=== PATIENT | male | born 1950 | race Caucasian/White ===

== ENCOUNTER → 2023-08-16 09:50 | Outpatient (REF) | payer MEDICARE, OTHER, SELFPAY ==
[2023-08-16 11:25] LABS: % Eosinophils 4.6 % (0-6); % Immature Granulocytes 0.2 % (0-0.5); % Lymphocytes 14.4 % (20.5-51.1); % Monocytes 9.2 % (1.7-9.3); % Neutrophils 70.6 % (42.2-75.2); Absolute Basophils 0.1 10^3/uL (0-0.2); Absolute Eosinophils 0.3 10^3/uL (0-0.7); Absolute Lymphocytes 0.9 10^3/uL (1.2-3.4); Absolute Monocytes 0.6 10^3/uL (0.1-0.6); Absolute Neutrophils 4.3 10^3/uL (1.4-6.5); Hematocrit 44.7 % (39.0-52.0); Mean Corp Hgb Conc. 33.6 g/dL (33.0-37.0); Mean Corpuscular Hgb 27.9 pg (27.0-31.0); Mean Corpuscular Volume 83.1 fL (80.0-94.0); Mean Platelet Volume 9.8 fL (7.4-10.4); Nucleated Red Blood Cells % 0 % (-); Platelet Count 249 10^3/uL (130-400); Red Blood Cell Count 5.38 10^6/uL (4.70-6.10); Red Cell Dist. Width 14.8 % (11.5-14.5); White Blood Cell Count 6.1 10^3/uL (4.8-10.8)
[2023-08-16 11:34] LABS: INR 1.18
[2023-08-16 11:35] LABS: ALT (SGPT) 19 U/L (0-50); AST (SGOT) 26 U/L (17-59); Albumin 4.4 g/dl (3.5-5.0); Alkaline Phosphatase 42 U/L (38-126); Blood Urea Nitrogen 23 mg/dl (9-20); Calcium 9.8 mg/dl (8.4-10.2); Carbon Dioxide 29 mmol/L (22-30); Chloride 104 mmol/L (98-107); Glucose 120 mg/dl (70-99); Magnesium 1.9 mg/dl (1.6-2.3); Potassium 4.3 mmol/L (3.5-5.1); Sodium 140 mmol/L (135-145); Total Bilirubin 0.5 mg/dl (0.2-1.3); Total Protein 6.8 g/dl (6.3-8.2); eGFR > 60.00
== END ==
LOC: SDSPAT 09:50
PROVIDERS: ATTENDING PHYSICIAN Internal Medicine Cardiovascular Disease; FAMILY PHYSICIAN Family Medicine; OTHER PHYSICIAN Internal Medicine Cardiovascular Disease
DX: Z01.818 Encounter for other preprocedural examination (principal); I48.91 Unspecified atrial fibrillation
CPT/HCPCS: 36415; 75572; 80053; 83735; 85025; 85610; 86850; 86900; 86901; 93005; Q9967

== ENCOUNTER 2023-09-02 08:30 | Day surgery (SDC) | payer MEDICARE, OTHER, SELFPAY ==
[2023-08-16 11:01] VITALS: BMI 24.8
--- NOTE | 2023-08-17 13:32 | W.PN.UPDATE ---
Update Note
Progress Note Update
incidental 5mm pulmonary nodule on CT--faxed to PCP
[2023-09-02] VITALS (22 sets, daily range): BP systolic 135–193; BP diastolic 76–112; BMI 24.8
[2023-09-02] MEDS: TYLENOL 1000 MG PO (10:11)
[2023-09-02 11:31] LABS: ACT-LR - POC 274 Seconds (116-155)
[2023-09-02 11:53] LABS: ACT-LR - POC 240 Seconds (116-155)
--- NOTE | 2023-09-02 12:16 | ITS.CL.ABL ---
Financial Reporting Advisor - Ablation
Ablation
Procedure Report:
ELECTROPHYSIOLOGY ABLATION STUDY
DATE:: September 02, 2023 REFERRING: Dr. Anil Styles
INDICATION: Paroxysmal supraventricular tachycardia in the form of atrial fibrillation. History of 3 cardioversions
HISTORY: See H and P. As above
ANTIARRHYTHMIC DRUG: Sotalol
PRE-PROCEDURE ROXANNE: No atrial thrombus and intracardiac ultrasound
PRESENTING RHYTHM: Sinus rhythm
'TIME-OUT': called and confirmed.
SEDATION/ANESTHESIA: provided via the anesthesia department using general anesthesia (LMA).
INTRAVENOUS/ARTERIAL ACCESS:
Right femoral venous - 8Fr
Left femoral venous - 8 Fr, 6 Fr
Ultrasound guidance for bilateral femoral vein access was utilized by me to obtain access with demonstration of normal anatomy
CHADS-VASC Score: Age greater than 75, hypertension
HAS-Bled Score
PROCEDURE:
1. A decapolar CS catheter was placed within the CS for mapping and pacing. This was also used as the reference catheter for the 3-D map.
2. The intracardiac ultrasound catheter was positioned in the RA to identify the FO for targeting of transseptal puncture, assist in identification of the pulmonary vein ostia, monitoring pre and post ablation pulmonary vein flow velocities,
monitoring for 'bubble' formation during RF application as a sign of thermal injury, and to monitor for pericardial effusion during mapping and ablation procedure. Left atrial size, LV ejection fraction, and pulmonary vein flows were monitored
pre and post ablation procedure. The other valves were inspected and found to be free of significant regurgitation or stenosis.
3. Half of the calculated heparin bolus was administered prior to the first transeptal puncture. Transseptal puncture was performed to diagnose RA and LA pressure so that safety of LA mapping and ablation could be further assessed, and to access
the left atrium and pulmonary veins for mapping and ablation. This entailed advancing an 8 Fr SL-1 sheath with dilator into the superior vena cava and withdrawing both (monitoring intracardiac ultrasound, fluoroscopy and tip pressure) with the tip
oriented toward the atrial septum. The fossa ovalis was engaged (indicated by sudden displacement of the sheath tip as well as tenting of the fossa seen on intracardiac ultrasound). Left atrial access required a pass with the Brockenbrough needle
extended. Left atrial catheter position was confirmed by pressure monitoring (RA mean pressure 8 mm Hg and LA mean presure 14 mm Hg), LA saturation (99%), as well as fluoroscopy. The sheath was advanced over the dilator and positioned in the left
atrium. This procedure was repeated for the Agilis sheath. The remainder of the calculated heparin bolus was administered and heparin was
infused to maintain ACT at 300 -350 seconds throughout the case.
4. RA pacing was performed via the proximal decapolar poles and LA pacing was performed via the distal decapolr poles.
5. A quadrapolar catheter was first positioned at the His position for His Bundle recording which was tagged via the 3-D Navex sytem, and then passed to the RVA for RV pacing and recording.
6. The multipolar catheter and PFA catheter were placed in each of the LIPV, LSPV, RSPV and the RIPV.
7. Next, a 3-D map was created using Navex. A 3-D reconstructed CT image was compared to the 3-D Navex map to assist in anatomic interpretation, mapping and ablation. The CT image and the NavX image were fused.
8. Entrance next block was confirmed in all 4 pulmonary veins as well as electrical silence and exit block in the left atrial posterior wall from roof to floor. Total of 81 lesions were given. Post vein and posterior wall isolation EP study with
extrastimuli and rapid burst pacing did not induce any other atrial arrhythmias. There were no none PV triggers seen.
9. Normal sinus node and AV node function were noted.
TOTAL FLOURO TIME: 12.7 minutes
TOTAL RF DURATION: 0 minutes
REVERSAL OF HEPARIN: 35 mg of protamine, slow IV administration
COMPLICATIONS:
None
Intracardiac US shows no pericardial effusion post ablation.
SUMMARY:
Complex left atrial mapping and ablation.
Entrance next block was confirmed in all 4 pulm veins plus left atrial posterior wall
RECOMMENDATIONS:
1. Admit to monitored bed.
2. Resume anticoagulation
3. Out of bed 4 hours
4. Discontinue sotalol and add metoprolol
Copy to: Dr. Anil Styles
--- NOTE | 2023-09-02 14:53 | CM ---
Chart reviewed. Patient is independent of ADLS, lives with his in a 2 [address], 1 [employer], 0 DME. Plan is for the patient to return home. CM to follow
[2023-09-02] MEDS: LOTREL 10 MG/20 MG 1 CAPSULE PO (15:07)
[2023-09-02] MEDS: ANESTHETIC LOZENGE 1 LOZENGE PO ×2 (15:30→21:08)
--- NOTE | 2023-09-02 19:25 | PTCARENOTE ---
Pt received post PVI, pt c/o sore throat and coughing stating recent resp. issue in the last week. Pt encouraged to splint his groins when coughing. Left femoral vein site slightly puffy, ? small hematoma which remained unchanged until figure of
eight suture was removed @16:30. Manual pressure held for @10minutes, Cara Montero NP and notified and came to see pt. Pt remained in bed for another hour but after getting up hematoma was enlarged, manual pressure agin hel for 15 minutes
with reduction in hematoma. notified again, pt will stay in bed an additional 2 hours with close monitoring. Right femoral site with dry and intact dressing, no sign of hematoma. Telemetry shows sinus rhythm/tach @105.
Pt unable to void while on bedrest, bladder scanned for 518mls, Cara Montero NP notified, pt straight cath's without difficulty for 675mls. (Pt states he is awaiting prostate biopsy) . Will monitor.
--- NOTE | 2023-09-02 20:47 | PTCARENOTE ---
Received pt at change of shift. A&O x4. Bilateral femoral sites clean, dry and intact. Rt site soft. Lt site hard and tender. Small hematoma noted. Applied manual pressure for 10 minutes. ANJUM Sebastian at the bedside and recommended sandbag
pressure for one hour. Applied at 2014.
He was previously taking sotalol, but is being changed to Metoprolol XL 25mg PO daily to start tomorrow. During the day, his HR was 60s-80s. It has been steadily increasing and is sitting at 105 currently and his BP is 164/91. Reached out to .
Ronan Carr and wanted dose started tonight. Per , order placed for Metoprolol XL 25 mg now. See APR.
[2023-09-02] MEDS: TOPROL XL 25 MG PO (21:00)
[2023-09-02] MEDS: ELIQUIS 5 MG PO (21:54)
--- NOTE | 2023-09-02 21:59 | PTCARENOTE ---
Sandbag removed at 2114. Left groin now soft to touch. No hematoma. Reviewed activity restrictions with the patient. Verbalized understanding.
Patient due to void. Assisted to the bathroom. Urinated 50 cc yellow urine. PVR 375 cc. Patient denies any discomfort/distention.
[2023-09-03 02:07] VITALS: BP 173/93
[2023-09-03 02:09] VITALS: BP 160/90
[2023-09-03 03:13] VITALS: BP 141/83
[2023-09-03 03:32] LABS: Hematocrit 40.9 % (39.0-52.0); Mean Corp Hgb Conc. 34.2 g/dL (33.0-37.0); Mean Corpuscular Hgb 27.3 pg (27.0-31.0); Mean Corpuscular Volume 79.9 fL (80.0-94.0); Mean Platelet Volume 9.4 fL (7.4-10.4); Platelet Count 297 10^3/uL (130-400); Red Blood Cell Count 5.12 10^6/uL (4.70-6.10); Red Cell Dist. Width 14.4 % (11.5-14.5); White Blood Cell Count 8.2 10^3/uL (4.8-10.8)
[2023-09-03 03:44] LABS: Blood Urea Nitrogen 27 mg/dl (9-20); Calcium 9.3 mg/dl (8.4-10.2); Carbon Dioxide 25 mmol/L (22-30); Chloride 107 mmol/L (98-107); Estimated Creatinine Clearance 70 ml/min; Glucose 131 mg/dl (70-99); Magnesium 1.9 mg/dl (1.6-2.3); Potassium 4.3 mmol/L (3.5-5.1); Sodium 137 mmol/L (135-145); eGFR > 60.00
[2023-09-03] MEDS: ANESTHETIC LOZENGE 1 LOZENGE PO (04:24)
[2023-09-03 06:00] VITALS: BMI 23.6
--- NOTE | 2023-09-03 06:24 | PTCARENOTE ---
Patient slept well overnight. Left groin site soft to touch. Ambulating to bathroom, steady on his feet.
Patient voiding small amounts overnight. Bladder scans less than 400ml. Patient denies any discomfort.
[2023-09-03 07:26] VITALS: BP 159/94
[2023-09-03] MEDS: INDOCIN 50 MG PO (08:03)
[2023-09-03] MEDS: LOTREL 10 MG/20 MG 1 CAPSULE PO (08:04)
[2023-09-03] MEDS: TRICOR 145 MG PO (08:04)
[2023-09-03] MEDS: PROTONIX 40 MG PO (08:04)
[2023-09-03] MEDS: ELIQUIS 5 MG PO (08:04)
[2023-09-03] MEDS: TOPROL XL 25 MG PO ×2 (08:04→09:48)
--- NOTE | 2023-09-03 09:35 | W.PN.CARDCBS ---
Addendum entered and electronically signed by Diego Nathan MD 09/03/23 10:54:
Patient seen and examined
Bilateral groins clean dry and intact
Soft left groin hematoma without pain or bruit
Stable if not improved this morning compared to last evening.
Examination:
As per DAIRY PROCESSING EQUIPMENT OPERATOR note
Bilateral groins clean dry and intact
Cor regular
Alert and x 3
Nonfocal neurologically
Impression:
Symptomatic paroxysmal Afib
post PVI 09/02/23
HTN
HLD
BPH with urinary retention
GERD
h/o GIB/Hemorrhoids
Pulmonary nodule on CT scan
SUMMARY:
Complex left atrial mapping and ablation.
Entrance next block was confirmed in all 4 pulm veins plus left atrial posterior wall
Plan:
post ablation feels good
tele SR with brief PAT
L groin events o/n noted, slight swelling but soft, no HT
voiding with less than 500cc residual, f/u with urology outpt
planned prostate bx will be pushed back 3 mo (December) as to not interrupt OAC post ablation
continue OAC Eliquis
Will stop Sotalol
New start to metoprolol xl 50mg daily
Activity restrictions reviewed
f/u Dr. Styles in 6-8 weeks
home today
Original Note:
Today's Communication / Plan
-
post ablation
stable for d/c home
Impression / Plan
-
PCP: Pastor Ford MD
CDY: Terrell Styles MD
Impression:
Symptomatic paroxysmal Afib
post PVI 09/02/23
HTN
HLD
BPH with urinary retention
GERD
h/o GIB/Hemorrhoids
Pulmonary nodule on CT scan
SUMMARY:
Complex left atrial mapping and ablation.
Entrance next block was confirmed in all 4 pulm veins plus left atrial posterior wall
Plan:
post ablation feels good
tele SR with brief PAT
L groin events o/n noted, slight swelling but soft, no HT
voiding with less than 500cc residual, f/u with urology outpt
planned prostate bx will be pushed back 3 mo (December) as to not interrupt OAC post ablation
continue OAC Eliquis
Will stop Sotalol
New start to metoprolol xl 50mg daily
Activity restrictions reviewed
f/u Dr. Styles in 6-8 weeks
home today
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
Subjective
Date of Service: September 03, 2023
no cp, sob
Objective
Labs:
09/03/23 03:17
09/03/23 03:17
Labs
Hgb 14.0 g/dL (13.0-18.0) 09/03/23 03:17
Hct 40.9 % (39.0-52.0) 09/03/23 03:17
Plt Count 297 10^3/uL (130-400) 09/03/23 03:17
Sodium 137 mmol/L (135-145) 09/03/23 03:17
Potassium 4.3 mmol/L (3.5-5.1) 09/03/23 03:17
BUN 27 mg/dl (9-20) H 09/03/23 03:17
Creatinine 1.0 mg/dL (0.7-1.3) 09/03/23 03:17
Glucose 131 mg/dl (70-99) H 09/03/23 03:17
Vital Signs and I&O:
Vital Signs
Temp Pulse Resp BP Pulse Ox
98.2 F 70 18 159/94 99
09/03/23 07:38 09/03/23 08:00 09/03/23 07:38 09/03/23 07:26 09/03/23 08:16
Vital Signs
Temp Pulse Resp BP Pulse Ox
98.2 F 70 18 159/94 99
09/03/23 07:38 09/03/23 08:00 09/03/23 07:38 09/03/23 07:26 09/03/23 08:16
Intake & Output
09/01/23 09/02/23 09/03/23 09/04/23
06:59 06:59 06:59 06:59
Intake Total 1100 / 1100
Output Total 1075 / 1075
Balance
Physical Exam
Physical Exam
NAD, AOX3
S1, S2, RRR
CTAB, non labored
SNTND Bsx4
R fem site c/d/i
L fem site slightly swollen, soft, no HT
[2023-09-03 09:50] VITALS: BP 159/95
--- NOTE | 2023-09-03 11:49 | W.DS.TRANS ---
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
-
Discharge Instructions:
Sleep Apnea Risk Intermediate
Discharge Diagnosis/Procedures Afib post ablation
Diet Low Cholesterol
Driving Restrictions No driving for 24 hours
Instructions:
Stand-Alone Forms: DC Instructions- Cath/EP Lab
Changes to Home Medications: Yes
Discharge Medications:
DC Medications w/original date entered in [facility]
amlodipine 10 mg-benazepril 20 mg capsule 1 cap PO DAILY 08/10/23
apixaban 5 mg tablet (Eliquis) 5 mg PO BID 08/10/23
cholecalciferol (vitamin D3) 25 mcg (1,000 unit) tablet (Vitamin D3) 25 mcg PO DAILY 08/10/23
fenofibrate 160 mg tablet 160 mg PO DAILY 08/10/23
zdvbdnjv-qs-jjloe 300 mcg-K 60 mcg-lycop 600 mcg-lutein 300 mcg tablet (Centrum Silver Men) 1 tab PO DAILY 08/10/23
omeprazole 40 mg capsule,delayed release 40 mg PO DAILY 08/10/23
sildenafil 50 mg tablet 50 mg PO DAILY PRN ED 08/10/23
indomethacin 50 mg capsule 50 mg PO DAILY 09/02/23
triamcinolone acetonide 0.1 % topical cream 1 applic topical DAILY PRN psoriasis 09/02/23
metoprolol succinate 50 mg tablet,extended release 24 hr (Toprol XL) 50 mg PO DAILY #90 tabs 09/03/23
Home Medication Changes
stop sotalol, new to metoprolol
Pending Results: No
--- NOTE | 2023-09-03 12:06 | PTCARENOTE ---
Pt seen by Cara Montero NP and . Left groin assessed, much improved from 09/01, pt also voiding in larger amounts. Telemetry and IV device removed. Discharge instructions reviewed with pt and his and daughter regarding medications and
their possible side effects, activity and driving restrictions, wound care, reporting cares and concerns and follow up appointments. Very good understanding verbalized. Pt escorted out via wheelchair and discharged to home.
== END 2023-09-03 12:05 | disposition home or self-care (01) ==
LOC: CATH 08:30
PROVIDERS: Nurse Practitioner Adult Health; ATTENDING PHYSICIAN Internal Medicine Cardiovascular Disease; FAMILY PHYSICIAN Family Medicine; OTHER PHYSICIAN Internal Medicine Cardiovascular Disease
DX: I48.0 Paroxysmal atrial fibrillation (principal); I10 Essential (primary) hypertension; E78.5 Hyperlipidemia, unspecified; K21.9 Gastro-esophageal reflux disease without esophagitis; N40.1 Benign prostatic hyperplasia with lower urinary tract symptoms; R33.8 Other retention of urine; Z87.19 Personal history of other diseases of the digestive system; R91.1 Solitary pulmonary nodule; Z79.01 Long term (current) use of anticoagulants; Z79.899 Other long term (current) drug therapy; L40.50 Arthropathic psoriasis, unspecified; Z86.14 Personal history of Methicillin resistant Staphylococcus aureus infection; Z88.6 Allergy status to analgesic agent
CPT/HCPCS: C1732; C1730; C1733; C1769; C1892; C1766; C1759; 76937; 80048; 83735; 85027; 85347; 86900; 86901; 87070; 93005; 93656